=== PATIENT | male | born 1990 | race African-American/Black ===

== ENCOUNTER 2022-04-30 12:56 | Emergency (ER) | payer MEDICARE ==
[~2022-04-30] VITALS: Ht 170.2 cm; Wt 84.0 kg
[2022-04-30 13:02] VITALS: BP 155/98
[2022-04-30] MEDS ORDERED: LIDOCAINE HCL/PF 1% 10 MG/ML 5ML VIAL INFIL ONE (13:45)
[2022-04-30] MEDS ORDERED: CEFTRIAXONE SODIUM 1 G/VIAL IM ONE (13:45)
[2022-04-30] MEDS ORDERED: ACETAMINOPHEN 325MG TABLET PO ONE (13:45)
[2022-04-30] MEDS ORDERED: BACITRACIN ZINC OINT UDPKT TOP ONE (13:45)
[2022-04-30] MEDS ORDERED: SULF1TAB48 PO (14:10)
[2022-04-30] MEDS ORDERED: AMOX1TAB16 MT (14:10)
[2022-04-30] MEDS ORDERED: IBUP-2029 MT (14:10)
== END 2022-04-30 16:30 | disposition home or self-care (01) ==
LOC: ER 15:31
DX: N61.1 Abscess of the breast and nipple (principal); I10 Essential (primary) hypertension; G51.0 Bell's palsy
CPT/HCPCS: 82962; 96372; 99283; J0696; J3490

== ENCOUNTER 2022-05-02 10:27 | Emergency (ER) | payer MEDICARE, MEDICAID ==
[~2022-05-02] VITALS: Ht 170.2 cm; Wt 89.0 kg
[~2022-05-02 10:27] MED LIST: AMOX1TAB16 MT; IBUP-2029 MT; SULF1TAB48 PO
[2022-05-02 10:55] VITALS: BP 144/85
== END 2022-05-02 13:23 | disposition home or self-care (01) ==
LOC: ER 10:27
DX: Z48.00 Encounter for change or removal of nonsurgical wound dressing (principal)
CPT/HCPCS: 99281

== ENCOUNTER 2024-06-16 11:07 | Emergency (ER) | payer MEDICARE, MEDICAID ==
[~2024-06-16] VITALS: Ht 167.6 cm; Wt 81.6 kg
[2024-06-16 11:09] VITALS: RESP 16; O2SAT 100
[2024-06-16] MEDS: LIDOCAINE HCL 1% 20ML VIAL INFIL ONE (11:53)
[2024-06-16] MEDS: IBUPROFEN 600MG TABLET PO ONE (12:52)
[2024-06-16 13:16] VITALS: BP 137/93; PULSE 85; TEMP 36.9; O2SAT 98
== END 2024-06-16 13:19 | disposition home or self-care (01) ==
LOC: ER 11:07
DX: L02.213 Cutaneous abscess of chest wall (principal); I10 Essential (primary) hypertension; Z98.890 Other specified postprocedural states; Z91.010 Allergy to peanuts
CPT/HCPCS: 10060; 99282